=== PATIENT | male | born 1955 | race Caucasian/White ===

== ENCOUNTER 2019-10-28 13:42 | Emergency (ER) | payer MEDICARE, MEDICAID, SELFPAY ==
[2019-10-28 13:44] VITALS: BP 169/111; PULSE 99; RESP 20; TEMP 37.3; O2SAT 96; BMI 45.3
--- NOTE | 2019-10-28 13:52 | ED.RN ---
[phone] ([facility]).
--- NOTE | 2019-10-28 14:08 | ED.VISSUMM ---
- ER Visit Summary Date of Service: 10/28/19 Chief Complaint: Cough History of Present Illness: The patient is a 64 M with medical history of hypertension. Patient is a call for 4 to 8 weeks. At times is clear at other times is white phlegm. He has had some intermittent fevers. He denies really any significant shortness of breath he has had some wheezing. He denies chest pain. No swelling in his legs. He thought he had the flu but is never been tested or evaluated for this. 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 Physical Examination: Older male no acute distress vital signs are stable afebrile. Pulse ox 96% on room air no signs hypoxia. H EENT exam unremarkable. Moist mucous members. Neck nontender. No lymphadenopathy. Lungs dry cough. Expiratory wheezing bilaterally. No rales or rhonchi. Equal symmetrical. No distress. Heart regular rate and rhythm no murmur. Abdomen obese but soft nontender normal bowel sounds no peritoneal signs. Moving all 4 extremities. Calves are nontender without edema or cords. Neurologically is awake alert with no focal motor deficits. Test Results: Portable chest x-ray 1 view shows no acute abnormality read both by myself and the radiologist. Emergency Department Course and Treatment: Patient appears to have a respiratory infection with bronchospasm. Pending chest x-ray to determine therapeutic course. Repeat exam patient is doing well at 2:30 PM. He and I discussed his test results. Due to him being ill for so long and wheezing I am we will try him on a course of Zithromax and prednisone. He will be given a dose of each prior to discharge. I discussed with with the patient did not want inhaler at this time. Treatment Plan: Prednisone daily for 7 days. Zithromax Z-JANAY. Follow-up with primary care physician if not improving. Return if worse. Disposition: Discharge Impression: Bronchitis with bronchospasm This note was generated with [employer] dictation software. It may contain incorrect words, spelling, and punctuation that were not noted in review of the chart prior to signing ED Disposition - Plan for ED Patient: Referrals: Román Pat MD [Primary Care Provider] -
--- NOTE | 2019-10-28 14:10 | RAD_ITS ---
STUDY: X-RAY CHEST REASON FOR EXAM: Male, 64 years old. COUGH, SOB, INTERMITTENT FEVER FOR ABOUT A MONTH-WORSE THIS PAST WEEK TECHNIQUE: Single AP portable view of the chest. COMPARISON: Comparison is made with prior study dated April 15, 2017. FINDINGS: The lungs are clear and expanded. There is no demonstrated pleural abnormality. Normal size heart. Normal mediastinum and ofelia. Normal visualized pulmonary arteries. There is atherosclerotic tortuosity of the aortic arch and descending thoracic aorta. There are diffuse degenerative changes of the visualized thoracic spine. Normal visualized ribs, clavicles, and shoulders. There is no demonstrated abnormality of the visualized soft tissue structures of the upper abdomen. RAD/Chest 1 View (Portable) IMPRESSION: Stable examination. No acute abnormality is seen. Electronically Signed: Angelito Cantor, at 14:25 EDT , Service support ,
[2019-10-28 14:15] VITALS: O2SAT 96
[2019-10-28 14:30] VITALS: BP 156/102; PULSE 82; RESP 16; O2SAT 97
--- NOTE | 2019-10-28 14:35 | ED.DEP ---
ED Disposition - Plan for ED Patient: Disposition: Home or Assisted Living Instructions: Acute Bronchitis Prescriptions: Prednisone [Deltasone] 40 mg PO DAILY 7 Days #7 tab Prescription Printed Azithromycin [Zithromax] 250 mg PO DAILY #4 tab Prescription Printed Referrals: Román Pat MD [Primary Care Provider] - 1 Week if not improving Additional Instructions: Prednisone daily till gone. Zithromax 1 pill a day for 4 more days. Both the prednisone and Zithromax to start tomorrow. Follow-up with your doctor if not improving.
[2019-10-28] MEDS: Azithromycin 250 MG Tablet 500 MG PO (14:50)
[2019-10-28] MEDS: predniSONE 20 MG Tablet 60 MG PO (14:51)
[2019-10-28 14:53] VITALS: BP 125/84; PULSE 89; RESP 16; O2SAT 96
== END 2019-10-28 15:01 | disposition home or self-care (01) ==
LOC: ED 14:59
PROVIDERS: Emergency Provider Emergency Medicine; PCP Family Medicine
DX: J40 Bronchitis, not specified as acute or chronic (principal); I10 Essential (primary) hypertension; Z79.899 Other long term (current) drug therapy
CPT/HCPCS: 71045; 99283

== ENCOUNTER 2019-11-07 13:22 | Emergency (ER) | payer MEDICARE, MEDICAID, SELFPAY ==
[2019-11-07] VITALS (9 sets, daily range): BP systolic 149–173; BP diastolic 79–99; PULSE 66–99; RESP 14–24; TEMP 36.7–37.4; O2SAT 95–97; BMI 45.6
--- NOTE | 2019-11-07 14:09 | RAD_ITS ---
STUDY: X-RAY CHEST REASON FOR EXAM: Male, 64 years old. Short of breath, cough TECHNIQUE: Single AP portable view of the chest. COMPARISON: Comparison is made with prior study October 28, 2019. FINDINGS: EKG electrodes are seen. The lungs are clear and expanded. There is no demonstrated pleural abnormality. Normal size heart. Normal mediastinum and ofelia. Normal visualized pulmonary arteries. There is atherosclerotic tortuosity of the aortic arch and descending thoracic aorta. There are diffuse degenerative changes of the visualized thoracic spine. Normal visualized ribs, clavicles, and shoulders. There is no demonstrated abnormality of the visualized soft tissue structures of the upper abdomen. RAD/Chest 1 View (Portable) IMPRESSION: Stable examination. No acute abnormality is seen. Electronically Signed: Angelito Cantor, at 14:49 EDT , Service support ,
--- NOTE | 2019-11-07 14:09 | EKG12_ITS ---
Test Reason : SOB Blood Pressure : / mmHG Vent. Rate : 083 BPM Atrial Rate : 083 BPM P-R Int : 154 ms QRS Dur : 094 ms QT Int : 386 ms P-R-T Axes : 000 -49 038 degrees QTc Int : 453 ms Normal sinus rhythm Left anterior fascicular block Cannot rule out Anterior infarct , age undetermined Abnormal ECG Confirmed by ADAM FISHER, JERRY ([id number]), video effects editor NEERAJ MARTIN ([id number]) on 11/08/2019 1:43:27 PM Referred By: TONY Confirmed By:JERRY MEDINA MD
[2019-11-07 14:39] LABS: Absolute Lymphocyte Count 3.19 X10^3/uL (0.83-4.51); Absolute Neutrophil Count 7.8 X10^3/uL (2.0-7.7); Basophil# 0.09 X10^3/uL; Basophil% 0.7 % (0-1); Eosinophil# 0.28 X10^3/uL; Eosinophils% 2.2 % (0-5); Hematocrit 51.6 % (40-54); Hemoglobin 16.9 g/dL (13.0-16.5); Lymphocyte # 3.19 X10^3/ul (4.0); Lymphocyte % 25.5 % (19-41); Mean Corp Hgb Conc 32.8 g/dL (32-36); Mean Corpuscular Hgb 29.6 pg (27.0-32.0); Mean Corpuscular Volume 90.5 fL (80-94); Mean Platelet Vol. 10.5 fl (6.2-12.0); Monocyte# 0.98 X10^3/uL; Monocyte% 7.8 % (0-10); NRBC Flagged by Analyzer 0 % (0-5); Neutrophil # 7.83 X10^3/uL (2.7-7.7); Neutrophil % 62.8 % (47-70); Platelet Count 363 K/mm3 (150-450); RBC Distribution Width CV 14.6 % (11.6-14.6); RBC Distribution Width SD 48.1 fl (35.1-43.9); White Blood Count 12.5 K/mm3 (4.4-11.0)
[2019-11-07 14:54] LABS: ALB/GLOB Ratio 0.8 RATIO (0.9-2.4); AST(SGOT) 14 U/L (15-37); Alanine Aminotransfer ALT/SGPT 19 U/L (16-61); Albumin, Serum 3.4 g/dL (3.2-5.0); Alkaline Phosphatase 113 U/L (45-117); Anion Gap 5 (5-15); BUN 18 mg/dL (7-18); BUN/Creat Ratio 17.1 RATIO (10-20); Calcium,Total 8.7 mg/dL (8.5-10.1); Chloride 106 mmol/L (98-107); Creatinine, Serum 1.05 mg/dL (0.70-1.30); EST Glomerular Filtration Rate 76 mL/min (>60); Est Glom Filt Rate - Afr Amer 92 mL/min (>60); Estimated Creatinine Clearance 69.67 ml/min; Globulin 4.5 g/dL (2.2-4.2); Glucose 142 mg/dL (74-106); Potassium 3.9 mmol/L (3.5-5.1); Protein, Total 7.9 g/dL (6.4-8.2); Sodium Level 136 mmol/L (136-145)
[2019-11-07 15:13] LABS: Lactic Acid 2.5 mmol/L (0.4-1.9)
[2019-11-07 15:26] LABS: BNP,B-Type NATRIURETIC PEPTIDE 3.4 pg/mL (0-100)
[2019-11-07] MEDS: Ceftriaxone 1 GM/50 ML BAG IV (16:04)
--- NOTE | 2019-11-07 16:08 | ED.VISSUMM ---
- ER Visit Summary Date of Service: 11/07/19 Chief Complaint: Shortness of breath History of Present Illness: The patient is a 64 M who presents with shortness of breath, cough, and sputum. He was seen in for this previously and diagnosed with bronchitis. He was started on azithromycin and prednisone. He said his symptoms transiently better and then after he completed his antibiotics, his symptoms recurred and worsened. Today he is having fevers. No travel or known exposure to coronavirus. No chest pain or other associated symptoms. No history of PE. Physical Examination: Afebrile. Heart rate 99 respiratory rate 24. 97% on room air. Patient in no acute distress. Speaking in full sentences. No respiratory distress. Heart regular. Extremities nontender with no edema. Skin appears normal. Test Results: EKG shows sinus rhythm at a rate of 83. Left anterior fascicular block pattern. No ischemia or infarction pattern. White count 12.5. Glucose 142, AST 14. Coags pending. Urinalysis pending. Troponin normal. BNP normal. Lactate 2.5. Cultures pending. Chest x-ray shows stable findings, nothing acute. Emergency Department Course and Treatment: Patient was placed on the monitor. He had coronavirus precautions. Respiratory panel is pending. Patient presents with recurrent symptoms of respiratory infection, including possible coronavirus. Work-up indicated severe sepsis based on his white count and respiratory rate. He is afebrile here, but is having fevers at home. He is not in shock. He was treated with azithromycin and ceftriaxone. He fluids ordered. Respiratory viral panel is pending. Hospitalist was contacted for inpatient care. Hospitalist were not sure where the patient should be admitted based on his symptoms and laboratory findings. They felt that he would not meet criteria for covid testing. After discussion with Dr. Self, I checked a viral panel and a repeat lactate after IV fluids. Repeat lactate was 1.2 and viral panel preliminary was negative. Patient was stable on the monitor. No hypoxia. No further distress. After further discussion with the patient, he will be discharged home. He will have coronavirus precautions at home. He was advised to return if he has new or worsening issues. Treatment Plan: As above Disposition: Discharge Impression: Bronchitis, suspected covid 19 This note was generated with [employer] software. It may contain incorrect words, spelling, and punctuation that were not noted in review of the chart prior to signing ED Disposition - Plan for ED Patient: Referrals: Román Pat MD [Primary Care Provider] -
[2019-11-07 16:14] LABS: Bacteria 0 SEEN /hpf (None Seen); White Blood Cells 0 SEEN /hpf (0-5)
[2019-11-07 16:17] LABS: Color, Urine Yellow (Yellow); Glucose, Dipstick Normal (Normal); Ketone-Dipstick 15 mg/dl (Negative); Leukocyte Esterase-Dipstick Negative /ul (Negative); Nitrite-Dipstick Negative (Negative); Occult Blood-Urine Negative /ul (Negative); Protein-Dipstick Negative (Negative); Specific Gravity, Urine 1.025 (1.002-1.030); Urine Bilirubin Dipstick Negative (Negative); Urine Clarity Clear (Clear); Urine Urobilinogen 1 mg/dl (Normal)
[2019-11-07] MEDS: 0.9% Normal Saline 1,000 ML 999 ML IV ×2 (16:27→16:34)
[2019-11-07 16:30] LABS: Mucous, Urine 1+ /hpf (<or=2+); Red Blood Cells-Urine 0-5 SEEN /hpf (0-5); Squamous Epithelial Cells - UA 0 SEEN /hpf (0-5)
[2019-11-07] MEDS: Acetaminophen 500 MG Tablet 1000 MG PO (16:44)
[2019-11-07 18:31] LABS: Reflex Lactate? Y
[2019-11-07 19:19] LABS: Lactic Acid 1.2 mmol/L (0.4-1.9)
--- NOTE | 2019-11-07 20:10 | ED.DEP ---
ED Disposition - Plan for ED Patient: Instructions: Acute Bronchitis Prescriptions: Benzonatate [Tessalon Perle] 200 mg PO TID PRN PRN #20 cap PRN Reason: Cough Prescription Printed Albuterol Inhaler [Ventolin Hfa] 1 - 2 puff INHALATION Q4H PRN PRN #1 inhaler PRN Reason: Wheezing Prescription Printed Referrals: Román Pat MD [Primary Care Provider] -
== END 2019-11-07 20:05 | disposition home or self-care (01) ==
PROVIDERS: Emergency Provider Emergency Medicine; PCP Family Medicine
DX: J40 Bronchitis, not specified as acute or chronic (principal); R65.20 Severe sepsis without septic shock; I10 Essential (primary) hypertension; Z79.899 Other long term (current) drug therapy
CPT/HCPCS: 71045; 80053; 81001; 83605; 83880; 84484; 85025; 87040; 87086; 87633; 93005; 99285; J7030; A4216

== ENCOUNTER → 2021-04-29 11:53 | Outpatient (CLI) | payer MEDICARE, MEDICAID, SELFPAY ==
[2021-04-29 12:17] LABS: Absolute Lymphocyte Count 2.35 X10^3/uL (0.83-4.51); Absolute Neutrophil Count 7.1 X10^3/uL (2.0-7.7); Basophil% 0.9 % (0-1); Eosinophil# 0.24 X10^3/uL; Eosinophils% 2.2 % (0-5); Hematocrit 50.8 % (40-54); Hemoglobin 16.4 g/dL (13.0-16.5); Lymphocyte # 2.35 X10^3/ul (0.83-4.51); Mean Corp Hgb Conc 32.3 g/dL (32-36); Mean Corpuscular Hgb 27.8 pg (27.0-32.0); Mean Corpuscular Volume 86.2 fL (80-94); Mean Platelet Vol. 10.3 fl (6.2-12.0); Monocyte# 0.81 X10^3/uL; Monocyte% 7.6 % (0-10); NRBC Flagged by Analyzer 0 % (0-5); Neutrophil # 7.13 X10^3/uL (2.7-7.7); Neutrophil % 66.8 % (47-70); Platelet Count 446 K/mm3 (150-450); RBC Distribution Width CV 13.5 % (11.6-14.6); RBC Distribution Width SD 42.4 fl (35.1-43.9); Red Blood Count 5.89 M/mm3 (4.6-6.2); White Blood Count 10.7 K/mm3 (4.4-11.0)
--- NOTE | 2021-04-29 12:42 | EKG12_ITS ---
Test Reason : PRE OP Blood Pressure : / mmHG Vent. Rate : 083 BPM Atrial Rate : 083 BPM P-R Int : 162 ms QRS Dur : 094 ms QT Int : 382 ms P-R-T Axes : 033 -47 063 degrees QTc Int : 448 ms Normal sinus rhythm Left anterior fascicular block Abnormal ECG Confirmed by ADAM FISHER, JERRY ([id number]), editor magazine LISA SCHULER ([id number]) on 05/01/2021 10:51:31 AM Referred By: Ronny Steven Confirmed By:JERRY MEDINA MD
[2021-04-29 12:54] LABS: Anion Gap 8 (5-15); BUN 12 mg/dL (7-18); BUN/Creat Ratio 11.2 RATIO (10-20); Calcium,Total 9.3 mg/dL (8.5-10.1); Chloride 102 mmol/L (98-107); Creatinine, Serum 1.07 mg/dL (0.70-1.30); EST Glomerular Filtration Rate 74 mL/min (>60); Est Glom Filt Rate - Afr Amer 89 mL/min (>60); Glucose 165 mg/dL (74-106); Potassium 4.2 mmol/L (3.5-5.1); Sodium Level 135 mmol/L (136-145)
== END ==
PROVIDERS: PCP Nurse Practitioner Family; Referring Provider Specialist; Visit Provider Specialist
DX: Z01.818 Encounter for other preprocedural examination (principal)
CPT/HCPCS: 36415; 80048; 85025; 93005

== ENCOUNTER 2023-02-04 11:00 | Outpatient (RCR) | payer MEDICARE, MEDICAID, SELFPAY ==
--- NOTE | 2023-01-13 11:31 | HP.PTEVAL ---
Patient's Visit Information MATHIEU CASTILLO is a 67 year old M referred to Physical Therapy by Ann Goins, KANDI-C with a diagnosis of B knee pain,falls.. Date of Evaluation: 01/13/23 Physical Therapist: Cuauhtemoc White, DPT, OCS, CSCS - Visit Plan Frequency: 3x /Week Duration: 2 Months Plan: 3x/week for 6-8 weeks for. 1. pool based qud and HS and gastroc stretching, LE strength , large muscle strength and calorie burning to tolerance. 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 recheck in 4 weeks a nd likely progress to gym ex if knee doing better per pat wishes. He is very motivated to ex due to recent DM diagnosis. Will see [facility] for knees but not hopeful anything else can be done. - Subjective B knee pain and h/o 25 operations including releases. Wanted to start doing sit ups an knelt on R knee 5 days ago. Now has clicking back and painful 7/10. Was a 4/10 prior to that in both knee. L knee is still 4-6/10 as he is favoring R side. Has h/o broken neck from [place] [facility] and hard to feel R side at times. Pain is under knee cap and clicks alot. Sleep is not great as it is hard to get comfortable. Will see [facility] as he is losing a lot of strength in knees since covid rest. Lost a lot of muscle and strength and requested PT. Employed: none SSDI from broken neck. Exercises: none. Basic adls: getting done. 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 Has bathtub to step into and it is hard. Enjoys computers. sedentary. Hands hurt to type. Just diagnosed with DM. Uses cane to get around now, but did not need it until recently. - Pain anterior knees Pain Intensity (Out of 10): 7 Pain Intensity Range: 4, 7 - Objective Walks back to therapy with cane in L UE slowly and stiff knees buit mod I. Trasnfers using UE chair and bed I. Avoids steps. Stops a few times during FGa testing due to R knee pain making him feel faint subjectively but recovers quickly. Ceervical aROM 40 rotations and 25 extension. R UE AROM slow and weak vs L but funcitonal. LE AROM WFL, 0-110 knee flexion and L is 0-120, c/o pain with most knee movements R side. Ankle and hip aROM WFL but psoas and quads and HS max tight at -65 90/90 test. Unable to hang leg off bed in supine due to knee pain R. strength hip abd and flexion and ext 3, knee ext 3 R and 3+ L, 4- B Hamstring tests. ankle strength 4-/5 B. patella stiff B R >L and painful to palpate. reflexes 1/3 patella and achilles B. Sensation diminished in R LE to gross light touch pt says from neck fracture incident yrs ago. - Balance/Special Test Scores Functional Gait Assessment Score: 18 % Disability: 40.0000 Lower Extremity Functional Score: 20 - Goals Goal 1:: I appropriate pool and gym based HEP to limit future problems Goal Time Frame: 6-8 Weeks Goal 2:: FGA score 23/30 to limit fall risk Goal Time Frame: 6-8 Weeks Goal 3:: Pain in B knees 0-3/10 at all times and manageable Goal Time Frame: 6-8 Weeks Goal 4:: LEFS 40 Goal Time Frame: 6-8 Weeks Goal 5:: sleep without interruption from knees Goal Time Frame: 6-8 Weeks - Rehabilitation Potential Physical Therapy Diagnosis: B knee pain, sedentary makes him weak, falls maybe from pain in knees Rehabilitation Potential: Fair - Anticipated Interventions Patient/Client Instruction: Educate patient on: Condition, Plan of Care, Risk Factors For the Purpose of:: To improve muscle performance and motor function, To increase tolerance to activity/condition/position, To improve gait and locomotor functions, To improve health of tissue, To improve safety Therapeutic Exercise to Include: Strength training, Balance training, Flexibilty training, Gait and locomotor training, In an aquatic setting, Passive ROM, Active ROM For the Purpose of:: To decrease pain, To increase ROM, To improve nutrient delivery to tissue, To improve muscle performance and motor function, To increase tolerance to activity/condition/position, To improve gait and locomotor functions Thank you for the opportunity to evaluate your patient. For Medicare and Medicare HMO plans, please review the plan of care and approve it. It will need to be FAXED BACK to us at [phone] for Medicare purposes. For Medicare only, by signing this I certify the plan of care. Please let me know if there are questions or concerns regarding this plan of care. Physician Signature: Date:
--- NOTE | 2023-04-13 07:24 | HP.PT.NRP ---
Patient Information Patient Information: MATHIEU CASTILLO was seen in my office for initial evaluation on 01/13/23. The following Plan of Care was established for this patient: POC Established Initial Frequency: 3x /Week Initial Duration: 2 Months Anticipated Interventions Patient/Client Instruction: Educate patient on: Condition, Plan of Care and Risk Factors For the Purpose of:: To improve muscle performance and motor function, To increase tolerance to activity/condition/position, To improve gait and locomotor functions, To improve health of tissue and To improve safety Therapeutic Exercise to Include: Strength training, Balance training, Flexibilty training, Gait and locomotor training, In an aquatic setting, Passive ROM and Active ROM For the Purpose of:: To decrease pain, To increase ROM, To improve nutrient delivery to tissue, To improve muscle performance and motor function, To increase tolerance to activity/condition/position and To improve gait and locomotor functions Last Seen Last Seen: This patient was last seen in our office 02/04/23. Pertinent comments regarding their Physical therapy will appear below: Pt seen 5 visits of aquatic POC and no showed for his latest scheduled visit. He has not scheduled any further visits. at this point, it has been over two months and I will discontinue due to nonattendance. At this point I will be discontinuing this patient from physical therapy. I would be happy to see this patient again in the future if found appropriate by the physician. Thank you! Cuauhtemoc White, DPT, OCS, CSCS Balance/Gait/Functional tests Balance/Special Test Scores Functional Gait Assessment Score: 18 % Disability: 40.0000 Lower Extremity Functional Score: 20
== END 2023-02-04 19:00 | disposition home or self-care (01) ==
LOC: PT 11:00
PROVIDERS: PCP Nurse Practitioner Family; Referring Provider Nurse Practitioner Family; Visit Provider Nurse Practitioner Family
DX: M25.561 Pain in right knee (principal); M25.562 Pain in left knee; G89.29 Other chronic pain; R29.6 Repeated falls
CPT/HCPCS: 97113; 97162

== ENCOUNTER 2023-09-16 20:56 | Emergency (ER) | payer MEDICARE, MEDICAID, SELFPAY ==
[2023-09-16 20:57] VITALS: BP 135/74; PULSE 67; RESP 16; TEMP 35.5; O2SAT 100; BMI 39.7
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
[2023-09-16] MEDS: Amox/Clavulanate 875 MG Tablet PO (22:42)
--- NOTE | 2023-09-17 00:18 | EDS_ITS ---
HPI History of Present Illness Chief Complaint: Dental Narrative Narrative: 68-year-old male presenting with right sided upper maxillary tooth pain. He states he had a dental bridge that broke. He states his daughter is a nurse practitioner and examined him and told him his tooth was infected. She stated that she could not write him for antibiotics and recommended that he come to the emergency room. He has not had any fever, chills. No difficulty swallowing or breathing. No facial swelling. He states he tried to follow-up with [facility] but they do not do bridges anymore. He states he has a dental appointment next week. [facility] Medical History Neck fracture Numbness and tingling in right hand Home Medications lisinopril 20 mg tablet 2.5 mg PO DAILY bp 10/28/19 [History Last Taken 11/06/19] meloxicam 7.5 mg tablet 7.5 mg PO DAILY pain 10/28/19 [History Last Taken 11/06/19] albuterol sulfate 90 mcg/actuation aerosol inhaler 1 - 2 puff inhalation Q4H PRN PRN Wheezing ##1 11/07/19 [Rx Last Taken Unknown] benzonatate 100 mg capsule 200 mg (2 x 100 mg) PO TID PRN PRN Cough #20 caps 11/07/19 [Rx Last Taken Unknown] hydroxyzine pamoate 50 mg capsule 50 mg PO TID PRN PRN Itching 11/07/19 [History Last Taken 11/05/19] amoxicillin 875 mg-potassium clavulanate 125 mg tablet 1 tab PO BID #20 tabs 09/16/23 [Rx Last Taken Unknown] Allergy/AdvReac Type Severity Reaction Status Date / Time codeine AdvReac Swelling Verified 09/16/23 20:57 Social History Smoking Status: Never smoker ROS ROS ED Constitutional Constitutional ED: Denies chills, fever(s) or sweats Eyes Eyes: Denies blurry vision or change in vision ENT ENT ED: Reports other Details: Dental pain ; Denies ear pain or sore throat Cardiovascular Cardiovascular: Denies chest pain, palpitations or racing heartbeat Respiratory/Chest Respiratory/Chest: Denies cough, dyspnea or sputum Gastrointestinal Gastrointestinal: Denies abdominal pain, constipation, diarrhea, nausea or vomiting Genitourinary Genitourinary ED: Denies dysuria, hematuria or urinary frequency Musculoskeletal Musculoskeletal: Denies arthralgias, myalgias or neck pain Integumentary Denies abscess, Abrasions or rash Neurologic Neurologic: Denies headache(s), paresthesias or weakness Psychiatric Psychiatric: Denies anxiety, depression, suicidal ideation or suicidal thoughts Endocrine Endocrinology: Denies polydipsia or polyuria EXAM Physical Exam Const Vital Signs: 09/16/23 20:57 Temperature 96 F L Temperature Source Temporal Pulse Rate 67 Respiratory Rate 16 Blood Pressure 135/74 H Blood Pressure Mean 94 Pulse Ox 100 Oxygen Delivery Method Room Air Positive well nourished General Appearance ED: NAD HEENT HEENT Narrative: Partially edentulous in the right upper maxillary teeth. There is a decaying tooth posteriorly which is likely tooth #2 however it is hard to determine given the patient is partially edentulous. No facial swelling. No sublingual or submandibular edema. Tongue is not swollen. No airway compromise Mouth ED: Yes lips normal and Yes tongue normal Mouth: lips normal and tongue normal Eyes PERRL Neck no lymphadenopathy Resp normal respiratory effort Cardio regular rate and regular rhythm GI normal to inspection, nondistended, normoactive bowel sounds Extremity normal to inspection Neuro oriented x3 and CN's II-XII intact bilaterally Sensorium / Orientation: alert Psych mental status grossly normal Skin no rashes or lesions noted MDM MDM MDM Narrative Medical decision making narrative: Patient presenting with dental pain. He is area of dental decay on examination. He has that appointment next week. He just wants antibiotics. He was written for Augmentin with first dose in the ED. Tylenol and ibuprofen for pain. Return precautions discussed. Impression: 1. Dental caries Discharge Plan Triage Chief Complaint: Dental ED Provider: Bertrand Koch Dx/Rx/DC Orders Instructions: ED Dental Cavity Prescriptions: New amoxicillin-pot clavulanate 875-125 mg tablet 1 tab PO BID Qty: 20 0RF No Action meloxicam 7.5 MG tablet 7.5 mg PO DAILY lisinopril 20 MG tablet 2.5 mg PO DAILY hydroxyzine pamoate 50 MG capsule 50 mg PO TID PRN PRN (Reason: Itching) benzonatate 100 MG capsule 200 mg PO TID PRN PRN (Reason: Cough) Qty: 20 0RF albuterol sulfate 1 INHALER inhaler 1 - 2 puff inhalation Q4H PRN PRN (Reason: Wheezing) Qty: 1 0RF Primary Care Provider: Ann Goins NP Referrals: Ann Goins NP, [employer] [Primary Care Provider] - Disposition Disposition: Home, Self Care Discharge Date/Time: 09/16/23 22:45
== END 2023-09-16 22:45 | disposition home or self-care (01) ==
PROVIDERS: Emergency Provider Student in an Organized Health Care Education/Training Program; PCP Nurse Practitioner Family; Visit Provider Student in an Organized Health Care Education/Training Program
DX: K02.9 Dental caries, unspecified (principal)
CPT/HCPCS: 99282